=== PATIENT | male | born 2000 | race Two or more races ===

== ENCOUNTER 2018-04-14 19:48 | Emergency (ER) | payer OTHER ==
[2018-04-14 20:53] LABS: ABS Basophils 0 10^3/ul (0-0.2); ABS Eosinophils 0 10^3/ul (0-0.6); ABS Lymphocytes 0.7 10^3/ul (1.0-4.8); ABS Monocytes 0.7 10^3/ul (0-0.8); ABS Neutrophils 6.5 10^3/ul (1.5-7.7); ABS Nucleated RBC 0 10^3/ul; Eosinophil % 0.6 %; Hematocrit 43 % (42-52); Hemoglobin 14.5 g/dl (14.0-18.0); Lymphocyte % 9.1 %; Mean Corpuscular HGB Conc 34 g/dl (31-36); Mean Corpuscular Hemoglobin 28 pg (27-31); Mean Corpuscular Volume 84 fL (80-94); Nucleated Red Blood Cells % 0; Platelet Count 167 10^3/ul (150-450); Red Blood Count 5.13 10^6/ul (4.00-5.40); Red Cell Distribution Width 14 % (10.5-15)
[2018-04-14] MEDS ORDERED: NS 0.9% 1000 ML** 1,000 ML IV ONE (20:58)
[2018-04-14] MEDS ORDERED: hydrOXYzine HCL TAB* 50 MG PO ONE (20:59)
[2018-04-14] MEDS ORDERED: Acetaminophen TAB* 325 MG PO ONE (21:07)
[2018-04-14 21:09] LABS: Albumin 4.4 g/dL (3.2-5.2); Albumin/Globulin Ratio 1.8 (1-3); BUN/Creatinine Ratio 15.8 (8-20); C Reactive Protein 100.25 mg/L (<8.01); EGFR African American 99.1 (>60); EGFR Non-African American 81.9 (>60); Globulin 2.4 g/dL (2-4); Total Bilirubin 0.6 mg/dL (0.2-1.0); Total Protein 6.8 g/dL (6.4-8.9)
[2018-04-14] MEDS ORDERED: Acetaminophen TAB* 325 MG ONE (21:09)
[2018-04-14 21:35] LABS: Potassium 3.8 mmol/L (3.5-5.0)
[2018-04-14 21:51] LABS: Influenza A Molecular NEGATIVE (Negative); Influenza B Molecular NEGATIVE (Negative)
[2018-04-14] MEDS ORDERED: Fluconazole 150 MG TAB PO ONE (21:55)
[2018-04-14 22:14] LABS: Rapid HIV 1 Nonreactive (Nonreactive)
[2018-04-14] MEDS ORDERED: diPHENhydraMINE PO* 25 MG PO ONE (22:24)
--- NOTE | 2018-04-14 22:28 | ED ---
HPI Febrile Illness - HPI Summary HPI Summary: Patient complains of fever up to 104, rash to bilateral head, bilateral axilla and arms, bilateral groin, edema to penis x 2 days. Patient seen by [facility] diagnosed with viral illness. Patient has been putting hydrocortisone cream on rash with no relief. Rash described as itchy, new onset Bernarda bilateral. Patient denies SAVAGE, neck pain, sore throat, cough, CP, SOB, N/V/D, abdominal pain, change in urine, change in BM. Medical history is none. Patient took ibuprofen just prior to arrival. - History of Current Complaint Chief Complaint: EDFever Time Seen by Provider: 04/14/18 20:30 Hx Obtained From: Patient Onset/Duration: Started Days Ago Timing: Constant Initial Severity: Mild Current Severity: Mild Pain Intensity: 3 Pain Scale Used: 0-10 Numeric Aggravating Factors: Nothing Alleviating Factors: Nothing Associated Signs and Symptoms: Rash - Allergy/Home Medications Allergies/Adverse Reactions: Allergies Allergy/AdvReac Type Severity Reaction Status Date / Time No Known Allergies Allergy Verified 04/14/18 19:59 PMH/Surg Hx/FS Hx/Imm Hx Endocrine/Hematology History: Denies: Hx Anticoagulant Therapy Cardiovascular History: Denies: Hx Cardiac Arrest History: Denies: Hx Dialysis Musculoskeletal History: Denies: Hx Gout Sensory History: Denies: Hx Eye Prosthesis Opthamlomology History: Denies: Hx Legally Blind EENT History: Denies: Hx Deafness Neurological History: Denies: Hx Dementia Psychiatric History: Denies: Hx Autism Infectious Disease History: No Infectious Disease History: Reports: Traveled Outside the [place] in Last 30 Days - Social History Occupation: Student Alcohol Use: None Substance Use Type: Reports: None Smoking Status (MU): Never Smoked Tobacco Review of Systems Positive: Fever Eyes: Negative ENT: Negative Cardiovascular: Negative Respiratory: Negative Gastrointestinal: Negative Genitourinary: Negative Musculoskeletal: Negative Positive: Rash Neurological: Negative Psychological: Normal All Other Systems Reviewed And Are Negative: Yes Physical Exam - Summary Physical Exam Summary: Extensive generalized rash involving bilateral head, posterior and bilateral neck, lateral axilla and extensive rash around the groin involving inguinal creases and suprapubic area. Genitals are very erythematous and penis has significant edema. Head of penis can be expressed from foreskin without pain. Testicles nontender, normal lie. No wound or apical abscess noted. Rash appears consistent with candidiasis. Physical exam otherwise unremarkable. Triage Information Reviewed: Yes Vital Signs On Initial Exam: Initial Vitals Temp Pulse Resp BP Pulse Ox 98.2 F 96 16 160/96 97 04/14/18 19:50 04/14/18 19:50 04/14/18 19:50 04/14/18 19:50 04/14/18 19:50 Vital Signs Reviewed: Yes Appearance: Positive: Well-Appearing Skin: Positive: Warm Head/Face: Positive: Normal Head/Face Inspection Eyes: Positive: Normal ENT: Positive: Normal ENT inspection Neck: Positive: Supple Respiratory/Lung Sounds: Positive: Clear to Auscultation Cardiovascular: Positive: Normal Abdomen Description: Positive: Nontender Male Genital Exam: Positive: Erythema. Negative: Bleeding, Epididymal Tenderness, Hernia Mass, High Riding Prostate, Inguinal Tenderness, Scrotum Tenderness (R), Scrotum Tenderness (L), Testicular Tenderness (R), Testicular Tenderness (L), Urethral Discharge Musculoskeletal: Positive: Normal Neurological: Positive: Normal Psychiatric: Positive: Normal AVPU Assessment: Alert - [place]ois Coma Scale Best Eye Response: 4 - Spontaneous Best Motor Response: 6 - Obeys Commands Best Verbal Response: 5 - Oriented Coma Scale Total: 15 Diagnostics - Vital Signs Vital Signs Temp Pulse Resp BP Pulse Ox 04/14/18 21:32 144/81 04/14/18 21:01 104 138/89 97 04/14/18 21:00 109 97 04/14/18 20:32 112 165/78 97 04/14/18 20:30 232 97 04/14/18 19:50 98.2 F 96 16 160/96 97 - Laboratory Lab Results: Lab Results 04/14/18 04/14/18 04/14/18 Range/Units 20:43 20:43 20:43 WBC 8.0 (3.5-10.8) 10^3/ul RBC 5.13 (4.00-5.40) 10^6/ul Hgb 14.5 (14.0-18.0) g/dl Hct 43 (42-52) % MCV 84 (80-94) fL MCH 28 (27-31) pg MCHC 34 (31-36) g/dl RDW 14 (10.5-15) % Plt Count 167 (150-450) 10^3/ul MPV 8.0 (7.4-10.4) fL Neut % (Auto) 81.3 % Lymph % (Auto) 9.1 % [place]renac % (Auto) 8.7 % Eos % (Auto) 0.6 % Baso % (Auto) 0.3 % Absolute Neuts (auto) 6.5 (1.5-7.7) 10^3/ul Absolute Lymphs (auto) 0.7 L (1.0-4.8) 10^3/ul Absolute Monos (auto) 0.7 (0-0.8) 10^3/ul Absolute Eos (auto) 0 (0-0.6) 10^3/ul Absolute Basos (auto) 0 (0-0.2) 10^3/ul Absolute Nucleated RBC 0 10^3/ul Nucleated RBC % 0 ESR (0-14) mm/Hr Sodium 134 L (135-145) mmol/L Potassium 3.8 (3.5-5.0) mmol/L Chloride 102 (101-111) mmol/L Carbon Dioxide 26 (22-32) mmol/L Anion Gap 6 (2-11) mmol/L BUN 18 (6-24) mg/dL Creatinine 1.14 (0.67-1.17) mg/dL Est GFR ( Amer) 99.1 (>60) Est GFR (Non-Af Amer) 81.9 (>60) BUN/Creatinine Ratio 15.8 (8-20) Glucose 101 H (70-100) mg/dL Lactic Acid 0.8 (0.5-2.0) mmol/L Calcium 9.0 (8.6-10.3) mg/dL Total Bilirubin 0.60 (0.2-1.0) mg/dL AST 23 (13-39) U/L ALT 34 (7-52) U/L Alkaline Phosphatase 65 (34-104) U/L C-Reactive Protein 100.25 H (<8.01) mg/L Total Protein 6.8 (6.4-8.9) g/dL Albumin 4.4 (3.2-5.2) g/dL Globulin 2.4 (2-4) g/dL Albumin/Globulin Ratio 1.8 (1-3) HIV 1&2 Antibody Rapid (Nonreactive) Influenza A (Rapid) (Negative) Influenza B (Rapid) (Negative) 04/14/18 04/14/18 04/14/18 Range/Units 21:21 21:21 21:39 WBC (3.5-10.8) 10^3/ul RBC (4.00-5.40) 10^6/ul Hgb (14.0-18.0) g/dl Hct (42-52) % MCV (80-94) fL MCH (27-31) pg MCHC (31-36) g/dl RDW (10.5-15) % Plt Count (150-450) 10^3/ul MPV (7.4-10.4) fL Neut % (Auto) % Lymph % (Auto) % [place]ac % (Auto) % Eos % (Auto) % Baso % (Auto) % Absolute Neuts (auto) (1.5-7.7) 10^3/ul Absolute Lymphs (auto) (1.0-4.8) 10^3/ul Absolute Monos (auto) (0-0.8) 10^3/ul Absolute Eos (auto) (0-0.6) 10^3/ul Absolute Basos (auto) (0-0.2) 10^3/ul Absolute Nucleated RBC 10^3/ul Nucleated RBC % ESR 8 (0-14) mm/Hr Sodium (135-145) mmol/L Potassium (3.5-5.0) mmol/L Chloride (101-111) mmol/L Carbon Dioxide (22-32) mmol/L Anion Gap (2-11) mmol/L BUN (6-24) mg/dL Creatinine (0.67-1.17) mg/dL Est GFR ( Amer) (>60) Est GFR (Non-Af Amer) (>60) BUN/Creatinine Ratio (8-20) Glucose (70-100) mg/dL Lactic Acid (0.5-2.0) mmol/L Calcium (8.6-10.3) mg/dL Total Bilirubin (0.2-1.0) mg/dL AST (13-39) U/L ALT (7-52) U/L Alkaline Phosphatase (34-104) U/L C-Reactive Protein (<8.01) mg/L Total Protein (6.4-8.9) g/dL Albumin (3.2-5.2) g/dL Globulin (2-4) g/dL Albumin/Globulin Ratio (1-3) HIV 1&2 Antibody Rapid Nonreactive (Nonreactive) Influenza A (Rapid) Negative (Negative) Influenza B (Rapid) Negative (Negative) Result Diagrams: 04/14/18 20:43 04/14/18 20:43 Lab Statement: Any lab studies that have been ordered have been reviewed, and results considered in the medical decision making process. Course/Dx - Course Course Of Treatment: Patient complains of fever up to 104, rash to bilateral head, bilateral axilla and arms, bilateral groin, edema to penis x 2 days. Patient seen by [facility] diagnosed with viral illness. Patient has been putting hydrocortisone cream on rash with no relief. Rash described as itchy, new onset Bernarda bilateral. Patient denies SAVAGE, neck pain, sore throat, cough, CP , SOB, N/V/D, abdominal pain, change in urine, change in BM. Medical history is none. Patient took ibuprofen just prior to arrival. Physical exam: Extensive generalized rash involving bilateral head, posterior and bilateral neck, lateral axilla and extensive rash around the groin involving inguinal creases and suprapubic area. Genitals are very erythematous and penis has significant edema. Head of penis can be expressed from foreskin without pain. Testicles nontender, normal lie. No wound or apical abscess noted. Rash appears consistent with candidiasis. Physical exam otherwise unremarkable. Patient tachycardic. Rectal temp of 102.5. CRP 102.5. White count and lactic within normal limits. Labs otherwise unremarkable. Patient denies medical history. Patient provided verbal agreement for HIV testing. HIV test nonreactive. Patient given fluconazole 200 mg by mouth here in the ED. Rx for Diflucan 200 mg daily 10 days, Rx for hydroxyzine 50 mg by mouth every 4. Patient told to stop using hydrocortisone cream on rash. To keep rash clean and dry as much as possible. Patient understands and approves of plan. - Diagnoses Provider Diagnoses: Candidiasis, cutaneous Discharge - Sign-Out/Discharge Documenting (check all that apply): Patient Departure Patient Received Moderate/Deep Sedation with Procedure: No - Discharge Plan Condition: Stable Disposition: HOME Prescriptions: Fluconazole 100 MG TAB* [Diflucan 100 MG TAB*] 200 mg PO DAILY 10 Days #10 tab hydrOXYzine pamoate [Vistaril] 50 mg PO Q4HR PRN 5 Days #30 capsule PRN Reason: Itching Patient Education Materials: Yeast Infection (ED) Referrals: No Primary Care Phys,NOPCP [Primary Care Provider] - Lesvia Ba MD [Medical Doctor] - Additional Instructions: Keep skin dry and exposed to air if possible. Avoid swimming. Avoid steroid or steroid cream. Take medications as directed. Take Tylenol or ibuprofen for fever. Follow-up with dermatology. If symptoms worsen return to the ED. - Billing Disposition and Condition Condition: STABLE Disposition: Home
[2018-04-14] MEDS ORDERED: Fluconazole 100 MG TAB* TAB PO ONE (22:44)
[2018-04-14 23:01] VITALS: BP 118/98
== END 2018-04-14 23:02 | disposition home or self-care (01) ==
LOC: ED 19:48
DX: B37.2 Candidiasis of skin and nail (principal); R21 Rash and other nonspecific skin eruption; R59.0 Localized enlarged lymph nodes
CPT/HCPCS: 36415; 80053; 83605; 85025; 85652; 86140; 86703; 87040; 96360; 99283; A9270-GY

== ENCOUNTER 2018-04-16 20:11 | Observation (INO) | payer OTHER ==
--- NOTE | 2018-04-16 22:19 | ED ---
Skin Complaint - HPI Summary HPI Summary: Pt is a 18 y/o M presenting to the ED with a chief complaint of a rash that has gotten worse since 04/14/18 with associated R sided face edema. Pt has mild pain in the groin but generally no other pain, and the rash is mildly itchy and burning. Pt denies chills. - History of Current Complaint Chief Complaint: EDGeneral Time Seen by Provider: 04/16/18 21:44 Stated Complaint: FEVER, RASH Hx Obtained From: Patient Onset/Duration: Started Days Ago, Still Present Skin Exposure Onset/Duration: Days Ago Timing: Constant Onset Severity: Mild Current Severity: Mild Pain Intensity: 0 Pain Scale Used: 0-10 Numeric Skin Location: Generalized - groin, back of neck, arms, chest Aggravating Symptom(s): Touch Alleviating Symptom(s): OTC Meds, OTC Creams/Salves Associated Signs & Symptoms: Rash - Allergy/Home Medications Allergies/Adverse Reactions: Allergies Allergy/AdvReac Type Severity Reaction Status Date / Time No Known Allergies Allergy Verified 04/14/18 19:59 PMH/Surg Hx/FS Hx/Imm Hx Previously Healthy: Yes Endocrine/Hematology History: Denies: Hx Anticoagulant Therapy Cardiovascular History: Denies: Hx Cardiac Arrest History: Denies: Hx Dialysis Musculoskeletal History: Denies: Hx Gout Sensory History: Denies: Hx Eye Prosthesis, Hx Legally Blind, Hx Deafness Opthamlomology History: Denies: Hx Eye Prosthesis, Hx Legally Blind Neurological History: Denies: Hx Dementia Psychiatric History: Denies: Hx Autism Infectious Disease History: No Infectious Disease History: Reports: Traveled Outside the [place] in Last 30 Days - Family History Known Family History: Negative: Renal Disease - Social History Alcohol Use: None Substance Use Type: Reports: None Smoking Status (MU): Never Smoked Tobacco Review of Systems Negative: Fever, Chills Positive: Rash - itchy, burning All Other Systems Reviewed And Are Negative: Yes Physical Exam - Summary Physical Exam Summary: VITAL SIGNS: Reviewed. GENERAL: Patient is a well-developed and nourished male who is lying comfortable in the stretcher. Patient is not in any acute respiratory distress. HEAD AND FACE: No signs of trauma. No ecchymosis, hematomas or skull depressions. No sinus tenderness. EYES: PERRLA, EOMI x 2, No injected conjunctiva, no nystagmus. EARS: Hearing grossly intact. Ear canals and tympanic membranes are within normal limits. MOUTH: Oropharynx within normal limits. NECK: Supple, trachea is midline, no adenopathy, no JVD, no carotid bruit, no c- spine tenderness, neck with full ROM. CHEST: Symmetric, no tenderness at palpation LUNGS: Clear to auscultation bilaterally. No wheezing or crackles. CVS: Regular rate and rhythm, S1 and S2 present, no murmurs or gallops appreciated. ABDOMEN: Soft, non-tender. No signs of distention. No rebound no guarding, and no masses palpated. Bowel sounds are normal. EXTREMITIES: FROM in all major joints, no edema, no cyanosis or clubbing. NEURO: Alert and oriented x 3. No acute neurological deficits. Speech is normal and follows commands. SKIN: Dry and warm, dense, dark, macular rash over groin area, axillary area, and chest. : Edema of the scrotum and penis. Triage Information Reviewed: Yes Vital Signs On Initial Exam: Initial Vitals Temp Pulse Resp BP Pulse Ox 97.3 F 109 20 144/84 99 04/16/18 20:13 04/16/18 20:13 04/16/18 20:13 04/16/18 20:13 04/16/18 20:13 Vital Signs Reviewed: Yes Diagnostics - Vital Signs Vital Signs Temp Pulse Resp BP Pulse Ox 04/16/18 21:53 82 160/73 96 04/16/18 20:13 97.3 F 109 20 144/84 99 - Laboratory Result Diagrams: 04/16/18 22:17 04/16/18 22:17 Lab Statement: Any lab studies that have been ordered have been reviewed, and results considered in the medical decision making process. Course/Dx - Course Course Of Treatment: Pt is a 18 y/o M presenting to the ED with a chief complaint of a rash that has gotten worse since 04/14/18 with associated R sided face edema. Pt has mild pain in the groin but generally no other pain, and the rash is mildly itchy and burning. Pt denies chills. Upon exam, dark, dense, macular rash noted across groin area, maxillary area, and chest, as well as edema of scrotum and penis. Pt will be admitted to [facility] under Dr. Gtz with a dx of skin rash. - Diagnoses Provider Diagnoses: Skin rash Discharge - Sign-Out/Discharge Documenting (check all that apply): Patient Departure - Discharge Plan Condition: Stable Disposition: ADMITTED TO [facility] Referrals: [facility] PHYSICIAN REFERRAL [Outside] - Attestation Statements Document Initiated by Bennyibe: Yes Documenting Scribe: Leidy Jordan Provider For Whom Bennyibe is Documenting (Include Credential): Otoniel Chairez MD. Scribe Attestation: Leidy Ellsworth, cindyed for Otoniel Chairez MD. on 04/17/18 at 0036. Status of Scribe Document: Ready Consult Consult: 0030 - Spoke with Dr. Gtz about the pt's condition who will be the accepting physician to [facility].
[2018-04-16 22:24] LABS: Hematocrit 42 % (42-52); Hemoglobin 14.6 g/dl (14.0-18.0); Mean Corpuscular HGB Conc 35 g/dl (31-36); Mean Corpuscular Hemoglobin 29 pg (27-31); Mean Corpuscular Volume 84 fL (80-94); Mean Platelet Volume 8.1 fL (7.4-10.4); Platelet Count 144 10^3/ul (150-450); Red Blood Count 5.04 10^6/ul (4.00-5.40); Red Cell Distribution Width 14 % (10.5-15)
[2018-04-16 22:30] LABS: INR 1.05 (0.77-1.02)
[2018-04-16 22:44] LABS: Albumin 4.2 g/dL (3.2-5.2); Albumin/Globulin Ratio 1.7 (1-3); BUN/Creatinine Ratio 11.5 (8-20); C Reactive Protein 113.93 mg/L (<8.01); EGFR African American 110.2 (>60); Globulin 2.5 g/dL (2-4); Potassium 3.7 mmol/L (3.5-5.0); Total Bilirubin 0.6 mg/dL (0.2-1.0); Total Protein 6.7 g/dL (6.4-8.9)
[2018-04-16 22:52] LABS: ABS Basophils 0 10^3/ul (0-0.2); ABS Eosinophils 0.3 10^3/ul (0-0.6); ABS Lymphocytes 0.9 10^3/ul (1.0-4.8); ABS Monocytes 0.6 10^3/ul (0-0.8); ABS Neutrophils 2.2 10^3/ul (1.5-7.7); ABS Nucleated RBC 0 10^3/ul; Large Platelets Present; Lymphocyte % 21.8 %; Nucleated Red Blood Cells % 0.1
[2018-04-16 23:28] LABS: Erythrocyte Sed Rate 17 mm/Hr (0-14)
[2018-04-17] MEDS ORDERED: diPHENhydraMINE PO* 25 MG PO PRN (03:08)
[2018-04-17] MEDS ORDERED: Fluconazole 100 MG TAB* TAB PO SCH (09:00)
[2018-04-17] MEDS ORDERED: predniSONE TAB* 20 MG PO SCH (09:00)
[2018-04-17] MEDS ORDERED: Famotidine TAB* 20 MG PO SCH (09:00)
--- NOTE | 2018-04-17 09:47 | HP ---
CC: [facility] HISTORY AND PHYSICAL: DATE OF ADMISSION: 04/17/18 PRIMARY CARE PROVIDER: Patient does not have a primary care provider. Patient occasionally will see [facility]. CHIEF COMPLAINT: Rash. HISTORY OF PRESENT ILLNESS: This is a 18-year-old male with no significant past medical history; how ever, patient does report some allergies to bugs and some topical agents, who now presents to the [facility] room because of a rash. The rash has been ongoing for the past 5 days. Initially, the rash s tarted at his head as well as genitalia. However, the rash has progressed now to include his arms as well as his torso, so he came to the emergency room about 3 days ago. At that time, he was diagnose d with possible fungal infection and was discharged home from the emergency room with oral fluconazol e. Patient also reports that he felt as if he had a mild fever several days ago; however, he did not take a temperature. Patient does not have any chills, no more fever feeling. Patient reports that he had been using the same soap; however, he recently changed the scent of the soap. There has been no outbreak of bedbugs or lice in his apartment or in his college. His roommate does not have any issues with bedbugs or lic e either. The rash is occasionally itching. He did not use any topical cream or Benadryl for the ra sh. He has been taking the fluconazole since Friday and now he comes to the emergency room because t he rash is getting worse. He does not think he is using any new soap or detergent, except for the ne w scent of a soap. PAST MEDICAL HISTORY: No past medical history. PAST SURGICAL HISTORY: Tonsillectomy. ALLERGIES: No known drug allergies. FAMILY HISTORY: Father: Diabetes, kidney tumor. Mother: Hyperlipidemia. SOCIAL HISTORY: Patient lives in an apartment, with a roommate. No smoking, occasional alcohol use. Patient is a [employer] student. REVIEW OF SYSTEMS: He thought he had a fever several days ago; however, nothing that he took a tempe rature for. No chills, no rigors. He does not have any changes in vision, no changes in hearing, no sore throat, no recent antibiotic use. No abdominal pain, no nausea, no vomiting, no diarrhea, no ch est pain, no shortness of breath, no palpitations, no joint or neck pain, no headaches, no new weakne ss or numbness. No polyuria, no polydipsia, no hesitancy with the urine, no increasing frequency or hematuria. PHYSICAL EXAMINATION GENERAL: This is a well-developed, well-nourished young male, lying on an ER stretcher in no acute d istress. VITAL SIGNS: Blood pressure 154/72, heart rate of 85, pulse ox of 99% on room air, temperature of 97 .3 Fahrenheit. HEENT: Pupils are equal, round, reactive to light. Atraumatic, normocephalic. There are no lesions noted in the mouth or the tongue region. There is no pharyngeal erythema, no exudates noted in the o ropharynx. No cervical lymphadenopathy. There is at the neck region a rash noted. LUNGS: There is no tachypnea, no use of accessory muscles. There is no wheezing or rhonchi. HEART: There is no tachycardia, regular rate and rhythm. No murmurs, rubs, or gallops. There is no chest wall tenderness. ABDOMEN: Bowel sounds are normoactive in all 4 quadrants. Abdomen is soft, nontender, nondistended. EXTREMITIES: There is no lower extremity edema, no calf tenderness. GENITALIA: There is mildly swollen scrotum. SKIN: There is rash noted on the neck, torso, upper arms, near the scrotal region, lower leg. The r yoni is macular, erythematous rash. There is no blanching rash, scattered throughout the entire body. DIAGNOSTIC STUDIES/LAB DATA: Labs: White cell count of 4.0, platelets of 144. Sodium of 135, potas sium of 3.7, chloride of 100, glucose of 110, CRP of 113, ESR of 17. IMPRESSION AND PLAN: Rash: At this point, I am unsure as to what the rash is, possibly allergic. I will start the patient on prednisone, continue patient on fluconazole. Will start patient on Benadr yl for itching as well as Pepcid. We will monitor the patient cautiously, patient may require input from Dermatology. If the rash does not improve, I will check the patient for gonorrhea and chlamydia to make sure that this is not a gonorrhea type rash. At this point, the rash does not seem like it i s any toxic necrosis or Mir-Ran syndrome, the rash is not involving the oral mucosa. The eduardo ent does not have any fevers, white blood cell count is low, there is no neutrophil elevation. So, a t this point, I do not think this is bacterial or infectious etiology that would require antibiotics or would contradict the use of steroids. [id number]/[facility] #: [id number]
[2018-04-17] MEDS ORDERED: Acetaminophen TAB* 325 MG PO PRN (11:30)
[2018-04-17 11:44] VITALS: BP 132/61
[2018-04-17] MEDS ORDERED: Aspirin EC TAB* 81 MG TAB.EC PO SCH (12:00)
[2018-04-17] MEDS ORDERED: Calamine LOTION* 120 ML TOPICAL SCH (14:00)
--- NOTE | 2018-04-17 21:22 | DS ---
CC: [facility]; Dr. Lesvia Ba; Dr. Isaac Acharya.* DISCHARGE SUMMARY: DATE OF ADMISSION: 04/17/18 DATE OF DISCHARGE: 04/17/18 PRIMARY CARE PROVIDER: [facility]. NAIL FEEDER: Dr. Lesvia Ba. INFECTIOUS DISEASE: Dr. Isaac Acharya. MY ATTENDING WHILE IN THE HOSPITAL: Dr. Liss Paul.* (DICTATED BY FITO DURHAM) PRIMARY DISCHARGE DIAGNOSES: 1. Rash. 2. Fever. SECONDARY DISCHARGE DIAGNOSIS: None. STUDIES DONE WHILE IN THE HOSPITAL: Chest x-ray from 04/17/18 read as no active cardiopulmonary disease. MEDICATIONS AT DISCHARGE: Include: 1. Benadryl 25 mg p.o. q.6 hours as needed. 2. Calamine lotion topical t.i.d. HOSPITAL COURSE: This is a brief summary of the patient's presentation. For more details, please see history and physical from Dr. Michaela Gtz on . In brief, the patient is a 18-year-old male with no significant past medical history who 5 days ago developed a rash which started on the scalp and then spread to his groin, arms, trunk, and legs. The patient's scalp was initially very itchy and then the scalp rash improved, spread to the above areas , which are alternatively itchy and painful. The patient's only new exposure was changing the scent on his body wash, but keeping the same brand. The patient was seen in the emergency room 3 days ago and was given fluconazole which he took with no improvement. The patient had been feeling subjectively febrile but did not have any recorded fevers. The patient has no insect exposure. The patient recently returned from a trip to [facility] where he is from 2 weeks ago. The patient has been a student at [employer] for one and a half years. The patient was admitted to the hospital, started on prednisone and H1 and H2 blockers. The patient's vital signs were significant only for slightly elevated temperature but no mandie fevers. The patient remains stable all day. The patient was discussed with Dr. Isaac Acharya, Infectious Disease who did not believe that the patient needed antibiotics and will see the patient in follow up outpatient. The patient was also discussed with Dr. Lesvia Ba of Dermatology, who believed that the patient was appropriate for the outpatient setting and would see him later that day in her office. The patient was stable enough for discharge on 04/17/18 to follow up closely with Dr. Ba of Dermatology. PHYSICAL EXAM ON THE DAY OF DISCHARGE: General: The patient is a 18 -year-old male who appears stated age, sitting comfortably on bed, in no acute distress. Vital Signs: At the time of discharge, temperature 99.6, pulse rate is 86, respiratory rate 16, oxygen saturation 97% on room air, blood pressure 132/61. HEENT: Head normocephalic. Scratches on the scalp. Sclerae anicteric. No conjunctival injection. Nasal mucosa moist. Oral mucosa moist. No pharyngeal erythema, discharge, or exudate. Neck: Significant submandibular lymphadenopathy bilaterally, possibly slightly larger on the right than the left. Rash on the nape of the neck, macular papular with significant surrounding erythema. Cardiac: Regular rate and rhythm, no clicks, murmurs, gallops, or rubs. Pulses are 2+ in the bilateral dorsalis pedis, posterior tibialis, and radial areas. Respiratory: Clear to auscultation bilaterally. Slight expiratory wheezes heard in bilateral lower lobes. Abdomen: Soft, nontender, nondistended. Bowel sounds present in all 4 quadrants. No hepatosplenomegaly. No abdominal bruits auscultated, no hepatojugular reflux. Genitourinary: No suprapubic or CVA tenderness. Skin: The patient has rash on his neck, arms, particularly antecubital fossa with papules and excoriation. The patient has significant rash in the groin with significant swelling of his genitalia and several blisters on the foreskin of the penis with significant darkening of the skin in the groin. The patient has petechial rash on his lower legs down to his feet, which does not tino. Psychiatric: Pleasant and cooperative. Neuro: Cranial nerves II through XII intact. PERTINENT LABORATORY DATA: The patient's CRP was 113. The patient's platelet count is 144 and ESR of 17, no other significant abnormalities. DISCHARGE PLAN: The patient will be discharged with close follow up with Dr. Lesvia Ba of Dermatology who he will see later today The patient has not received prednisone while in the hospital, it will be continued at the discretion of the Dr. Ba. The patient will have Calamine lotion and Benadryl for symptomatic treatment of his itching. The patient has been recommended to change to all hypoallergenic products for his cleaning and hygiene care. The patient should have a regular unrestricted diet, engaging in activities as tolerated. The patient will return to hospital for chest pain, high fevers, wheezing, severe shortness of breath, significant worsening or ulcerations of his rash or other alarming symptoms. The patient should follow up with Dr. Isaac Acharya of Infectious Disease if an infectious etiology is believed to be present by Dr. Ba. The patient is to follow up with [facility] within 1 week for general medical management to ensure improvement in his rash. TIME SPENT: Approximately 60 minutes were spent on the discharge of the patient , 30 of which was spent in [id number] with the patient obtaining history and physical and discussing treatment plan. FITO DURHAM [id number]/[facility] #: [id number] PILI
== END 2018-04-17 15:50 | disposition home or self-care (01) ==
LOC: ED 20:11 → MED 04-17 03:06
PROVIDERS: ADMIT Internal Medicine; ATTEND Internal Medicine
DX: R21 Rash and other nonspecific skin eruption (principal); R50.9 Fever, unspecified; Z90.89 Acquired absence of other organs; Z79.82 Long term (current) use of aspirin
CPT/HCPCS: 36415; 71045; 80053; 80074; 85025; 85610; 85652; 86140; 99284; A9270-GY; J7512